=== PATIENT | male | born 1990 | race Hispanic/Latino ===

== ENCOUNTER 2024-01-29 10:30 | Outpatient (RCR) | payer OTHER, SELFPAY ==
--- NOTE | 2023-12-13 15:12 | HP.OTEVAL ---
Patient's Visit Information Visit Information Visit Information: ALEXEY BE is a 33 year old M, referred to Occupational Therapy by ONEL BEST, with a diagnosis of right radial head fx. Date of Evaluation: 12/13/23 Occupational Therapist: WILY Sena/Galina, CHT Subjective Subjective: This 33 year old male was see for OT eval with dx of right radial head non- displaced fx. pt states he had fall at work ( [employer] [facility]) 11/20/22. pt arrives 3 weeks and 1 day from DOI. pt states he does hand numbness- tingling of entire hand ( states this happened about a week after his DOI) pt has not been able to return to work and currently limited with use of right UE for all ADLS. pt would like to return to work as soon as he can. ROM Elbow: right+10/140 left +20/145 Forearm: right/left WNL Wrist: right/Left WNL ROM Comments: pt demo with hyper extension of left elbow right elbow noted a decrease in the hyper extension ( therapist ed. 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 javier Goal:No pain with affected hand use: Yes Comment: right UE Goal:Full use of affected hand in daily activities including work: Yes Goal:Improvement in sensation documented by [place]stone-Dhaval monofiliaments: Yes Comment: testing at 2.83 Normal sensation Rehabilitation General Assessment: pt is currently 3 weeks and 1 day out from his DOI. Pt feels his ROM has improved but has had tingling in his hand since about a week after his fall- nothing he has done has decreased his tingling. Pt currently demo with newly healing radial head fx of right UE and nerve involvement limiting pts return to work. Pt would benefit from skilled OT services 1x week for 9 weeks for total of 10 approved C9 visits until 02/01/24. Today therapist ed. pt on no forced ROM of elbow flex/ext as well as ulnar nerve glides, Ice for 10 min 2 x a day. pt demo understanding and agree to POC. Rehabilitation Potential: Good Anticipated Interventions Anticipated Interventions: A/AAROM/PROM, Strengthening, Triggerpoint Release, Modalities, Joint Protection/Energy Conservation, Ergonomic Education, Education re assistive Equipment, Education re Diagnosis and Home Program Visit Plan Frequency: 1x/Week Duration: 4 Months TEXT: Thank you for the opportunity to evaluate your patient. For Medicare and Medicare HMO plans, please review the plan of care and approve it. It will need to be FAXED BACK to us at [phone] for Medicare purposes. Please let me know if there are questions or concerns regarding this plan of care. Physician Signature: Date:
--- NOTE | 2024-01-29 11:02 | HP.OTDCSUM_ITS ---
Discharge Summary D/C Summary: It has been my pleasure to treat ALEXEY BE under orders from ONEL BEST, for the diagnosis of right radial head fx for a total of 7 visit(s). Please see the following information for a summary of their discharge status. 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 pt seen in OT for pain management, ROM, tingling and then progressive strengthening once cleared by . pt has achieved all goals at this time. pt is to continue weaning into exercise on own. d/c sentence: If there are questions or concerns regarding this patient's occupational therapy, please fell free to call me at [phone]. Thank you for the referral of this patient. Sincerely, Vikki Pak
--- NOTE | 2024-01-29 11:03 | HP.OT.NRP ---
Patient Information Patient Information: ALEXEY BE was seen in my office for initial evaluation on 12/13/23. The following Plan of Care was established for this patient: POC Established Initial Frequency: 1x/Week Initial Duration: 4 Months Plan: AROM progress to strengthening once able Anticipated Interventions Anticipated Interventions: A/AAROM/PROM, Strengthening, Triggerpoint Release, Modalities, Joint Protection/Energy Conservation, Ergonomic Education, Education re assistive Equipment, Education re Diagnosis and Home Program Last Seen Last Seen: This patient was last seen in our office 01/29/24. Pertinent comments regarding their Occupational therapy will appear below: This 33 year old male seen with dx of radial head fx. pt seen in therapy for pain management, tingling, ROM and return to functional use as well as strengthening once cleared by . pt progressed through POC now able to strengthen. pt has achieved all goals at this time and to continue exercise on own weaning into as able. pt in agreeance. At this point I will be discontinuing this patient from occupational therapy. I would be happy to see this patient again in the future if found appropriate by the physician. Thank you! Vikki Pak
== END 2024-01-29 19:00 | disposition home or self-care (01) ==
LOC: OT 10:30
DX: S52.121D Displaced fracture of head of right radius, subsequent encounter for closed fracture with routine healing (principal)
CPT/HCPCS: 97035; 97110; 97166; 97530